=== PATIENT | female | born 1940 | race Caucasian/White ===

== ENCOUNTER 2018-07-26 07:54 | Inpatient (IN) | payer MEDICARE, MEDICAID | END 2018-07-29 13:50 | LOC: ER 07:54 → ED HOLD 13:08 → ORTHO 4S 16:30 | DX: M48.54XA Collapsed vertebra, not elsewhere classified, thoracic region, initial encounter for fracture (principal); E43 Unspecified severe protein-calorie malnutrition; E87.1 Hypo-osmolality and hyponatremia; Z68.1 Body mass index [BMI] 19.9 or less, adult; F10.10 Alcohol abuse, uncomplicated ==

== ENCOUNTER 2019-07-19 23:29 | Inpatient (IN) | payer MEDICARE, MEDICAID ==
[~2019-07-19] VITALS: Ht 160 cm; Wt 35.0 kg
[~2019-07-19 23:29] MED LIST: BUDE0.256 IH; FLUT1AER INH
--- NOTE | 2019-07-19 23:55 | NUR ---
ct of head completed
[2019-07-20] VITALS (7 sets, daily range): BP systolic 99–141; BP diastolic 41–62
[2019-07-20 00:16] LABS: BASOPHILS % (AUTO) 0.4 % (0-1); EOSINOPHILS % (AUTO) 0 % (0-6); HEMATOCRIT 41.2 % (35.0-45.0); HEMOGLOBIN 13.6 g/dl (12.0-16.0); LYMPHOCYTES # (AUTO) 0.5 X10'3 (1.1-4.8); LYMPHOCYTES % (AUTO) 7.5 % (21-51); MEAN CORPUSCULAR HEMOGLOBIN 31.8 PG (27.0-31.0); MEAN CORPUSCULAR VOLUME 96.4 FL (78-98); MEAN PLATELET VOLUME 7.5 FL (7.4-10.4); MONOCYTES # (AUTO) 0.3 X10'3 (0-0.9); MONOCYTES % (AUTO) 3.8 % (2-12); NEUTROPHILS # (AUTO) 6.1 X10'3 (1.8-7.7); NEUTROPHILS % (AUTO) 88.3 % (42-75); PLATELET COUNT 253 X10'3 (140-440); RED BLOOD COUNT 4.28 X10'6 (4.20-5.60); RED CELL DISTRIBUTION WIDTH 14.2 % (11.5-14.5); WHITE BLOOD COUNT 6.9 X10'3 (4.5-11.0)
[2019-07-20 00:26] LABS: PARTIAL THROMBOPLASTIN TIME 26 SECONDS (22-32)
[2019-07-20 00:29] LABS: ALANINE AMINOTRANSFERASE 18 U/L (12-78); ALBUMIN 3.6 G/DL (3.4-5.0); ALBUMIN/GLOBULIN RATIO 1.1 (1.1-1.5); ALKALINE PHOSPHATASE 76 IU/L (46-116); ANION GAP 1 (8-16); BILIRUBIN,TOTAL 0.3 MG/DL (0.1-1.0); BLOOD UREA NITROGEN 32 MG/DL (7-18); BUN/CREATININE RATIO 52.5 (6.6-38.0); CALCIUM 8.9 MG/DL (8.5-10.1); CHLORIDE 98 MMOL/L (99-107); CREATININE 0.61 MG/DL (0.40-0.90); GLUCOSE 121 MG/DL (70-104); SODIUM 139 MMOL/L (135-145); TOTAL CARBON DIOXIDE 39.7 MMOL/L (24-32); TOTAL PROTEIN 6.9 G/DL (6.4-8.2); eGFR > 90 ML/MIN
[2019-07-20 00:31] LABS: TROPONIN I 0.04 NG/ML (0.0-0.05)
[2019-07-20 00:33] LABS: ASPARTATE AMINO TRANSFERASE 22 U/L (10-37); POTASSIUM 4.4 MMOL/L (3.5-5.1)
[2019-07-20] MEDS ORDERED: normal saline 1000ML IV soln IVB ONE (00:40)
[2019-07-20] MEDS: normal saline 1000ml 1,000 ML IV SCH ×2 (01:00→04:31)
[2019-07-20] MEDS ORDERED: iohexol 350MG/ML 100ml bottle IV ONE (01:17)
--- NOTE | 2019-07-20 01:28 | NUR ---
pt to ct of head
--- NOTE | 2019-07-20 01:44 | NUR ---
pt back from ct
--- NOTE | 2019-07-20 02:20 | NUR ---
rossy alcazar notified consult computer set up at bedside
--- NOTE | 2019-07-20 02:23 | NUR ---
plan of care updated with family memebres at bedside
--- NOTE | 2019-07-20 03:08 | NUR ---
NEURO CONSULT COMPLETE
--- NOTE | 2019-07-20 03:25 | NUR ---
[facility] LEFT UNIT, WILL RETURN IN A FEW HOURS
[2019-07-20] MEDS ORDERED: ondansetron/PF 4mg/2ml inj IV PRN (03:30)
[2019-07-20] MEDS ORDERED: potassium CL 10mEq/100ml bag 100 ML IV PRN ×2 (03:30)
--- NOTE | 2019-07-20 04:01 | NUR ---
Patient in room . I have received report from DEMARCUS Jacinto and had the opportunity to ask questions and assume patient care.
--- NOTE | 2019-07-20 04:15 | NUR ---
Patient arrived to floor with RN, limited armband placed on pt. Pt is non-responsive, VSS. Transfered to bed via slideboard, preformed skin check and placed tele on pt. Will continue to monitor.
--- NOTE | 2019-07-20 06:20 | NUR ---
Problems reprioritized. Patient report given, questions answered & plan of care reviewed with DEMARCUS Mckeon.
--- NOTE | 2019-07-20 06:30 | NUR ---
Received report from Edna TRACY
[2019-07-20] MEDS: K and/or MAG REPLACEMENT MC SCH ×2 (08:00→20:00)
[2019-07-20] MEDS: heparin, porcine 5000 units/ml vial SQ SCH ×2 (08:31→19:29)
[2019-07-20] MEDS: albuterol 2.5 MG/3 ML nebule NEB SCH ×3 (09:00→20:41)
[2019-07-20] MEDS: budesonide 0.5mg/2ml UD nebule IH SCH ×2 (09:00→20:41)
[2019-07-20 09:27] LABS: BASOPHILS % (AUTO) 0.3 % (0-1); EOSINOPHILS % (AUTO) 0.1 % (0-6); HEMATOCRIT 40.9 % (35.0-45.0); HEMOGLOBIN 13.3 g/dl (12.0-16.0); LYMPHOCYTES # (AUTO) 0.8 X10'3 (1.1-4.8); LYMPHOCYTES % (AUTO) 11.8 % (21-51); MEAN CORPUSCULAR HEMOGLOBIN 31.3 PG (27.0-31.0); MEAN CORPUSCULAR HGB CONC 32.5 g/dL (33.0-36.5); MEAN CORPUSCULAR VOLUME 96.3 FL (78-98); MEAN PLATELET VOLUME 7.6 FL (7.4-10.4); MONOCYTES # (AUTO) 0.6 X10'3 (0-0.9); MONOCYTES % (AUTO) 8.8 % (2-12); NEUTROPHILS # (AUTO) 5.2 X10'3 (1.8-7.7); PLATELET COUNT 222 X10'3 (140-440); RED BLOOD COUNT 4.25 X10'6 (4.20-5.60); RED CELL DISTRIBUTION WIDTH 14.3 % (11.5-14.5); WHITE BLOOD COUNT 6.5 X10'3 (4.5-11.0)
[2019-07-20 09:51] LABS: ALANINE AMINOTRANSFERASE 28 U/L (12-78); ALBUMIN 3.5 G/DL (3.4-5.0); ALBUMIN/GLOBULIN RATIO 1.2 (1.1-1.5); ALKALINE PHOSPHATASE 77 IU/L (46-116); ANION GAP 0 (8-16); ASPARTATE AMINO TRANSFERASE 23 U/L (10-37); BILIRUBIN,TOTAL 0.3 MG/DL (0.1-1.0); BLOOD UREA NITROGEN 28 MG/DL (7-18); BUN/CREATININE RATIO 59.6 (6.6-38.0); CALCIUM 9.1 MG/DL (8.5-10.1); CHLORIDE 101 MMOL/L (99-107); CREATININE 0.47 MG/DL (0.40-0.90); GLUCOSE 98 MG/DL (70-104); POTASSIUM 4.7 MMOL/L (3.5-5.1); SODIUM 141 MMOL/L (135-145); TOTAL CARBON DIOXIDE 39.9 MMOL/L (24-32); TOTAL PROTEIN 6.5 G/DL (6.4-8.2); eGFR > 90 ML/MIN
[2019-07-20] MEDS ORDERED: aspirin 300mg supp.rect RC ONE (11:55)
--- NOTE | 2019-07-20 12:11 | NUR ---
Patient in room ORTHO 4011. I have received report from [facility] N[facility]EL [facility] PIPE and had the opportunity to ask questions and assume patient care. -GREGG ZAFAR
--- NOTE | 2019-07-20 16:23 | NUR ---
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 Hx early stages of dementia as well per EMR. Pt not safe for PO; NPO per YARD ASSOCIATE recs today. Pt -2kg since last admit July 2018 though did have severe cachexia in addition to wt loss at that time as well. Pt likely has remained malnourished w/ current BMI 13.7, severe weakness, severe muscle/fat wasting, and prior wt loss hx. Meets severe malnutrition criteria this admit; MD notified. Pt was agreeable to vanilla ensure enlive TID last July; will monitor for ONS preferences once cleared for PO per YARD ASSOCIATE recs. José Manuel 10; skin intact and no edema present. IF pt fails YARD ASSOCIATE BSS tomorrow would likely benefit from alternative nutrition to meet needs givenrepletion needs and ALOC AOx2. Not appropriate for malnutrition ed at this time givevn ALOC. EN recs below IF alternative nutrition necessary. Will continue to monitor. Rec: 1. advance diet per YARD ASSOCIATE to regular 2. IF alternative nutrition per YARD ASSOCIATE; Jevity 1.2 at 50ml/hr 3. once PO; vanilla ensure enlive TIDWM 4. once PO; MVI/mineral given malnutrition needs 5. once PO; consider appetite stimulant per MD approval 6. bowel care as needed Addendum: 07/20/19 at [address] Amended: Links added.
[2019-07-20] MEDS: mineral oil/petrolatum, white cream 113gm jar TP SCH (16:46)
--- NOTE | 2019-07-20 16:46 | NUR ---
MED DID NOT SCAN INTO [facility], CHECKED MED PRIOR TO ADMIN
--- NOTE | 2019-07-20 18:13 | NUR ---
Problems reprioritized. Patient report given TO PRIMARY NURSE ANGEL, questions answered & plan of care reviewed with CLINICAL INSTRUCTOR LETI. -GREGG ZAFAR
--- NOTE | 2019-07-20 18:38 | NUR ---
GAVE REPORT TO DEMARCUS JOY
--- NOTE | 2019-07-20 19:37 | NUR ---
pt has 6-7 word sentences. pt states normal for her. diminished lungs noted. watching tv
--- NOTE | 2019-07-20 20:30 | NUR ---
noted sats at 79%. increased O2 to 2.5 liters. called RT to give treatment. pt had not received tx since admission.
--- NOTE | 2019-07-21 00:38 | NUR ---
oxygen off, desat to 83%. up to 93% on 2.5L oxygen
[2019-07-21] MEDS ORDERED: albuterol 2.5 MG/3 ML nebule NEB PRN (00:45)
--- NOTE | 2019-07-21 01:30 | NUR ---
tele reported elevated hr in 130's for a few seconds. unsure of patient's activity at that time as it was reported to RN at 0512. noted to television equipment operator that pt has history of afib with RVR and to call RN if activity returns.
[2019-07-21] MEDS: albuterol 2.5 MG/3 ML nebule NEB SCH ×4 (03:18→21:18)
[2019-07-21 06:00] VITALS: BP 102/45
--- NOTE | 2019-07-21 06:02 | NUR ---
reported to days. noted pt resting w/o distress - anticipate CT this am
[2019-07-21 06:24] LABS: BASOPHILS % (AUTO) 0.3 % (0-1); EOSINOPHILS % (AUTO) 0.3 % (0-6); HEMATOCRIT 36.8 % (35.0-45.0); LYMPHOCYTES # (AUTO) 0.6 X10'3 (1.1-4.8); LYMPHOCYTES % (AUTO) 8.9 % (21-51); MEAN CORPUSCULAR HEMOGLOBIN 31.6 PG (27.0-31.0); MEAN CORPUSCULAR HGB CONC 32.7 g/dL (33.0-36.5); MEAN CORPUSCULAR VOLUME 96.6 FL (78-98); MONOCYTES # (AUTO) 0.5 X10'3 (0-0.9); MONOCYTES % (AUTO) 7.3 % (2-12); NEUTROPHILS # (AUTO) 5.9 X10'3 (1.8-7.7); NEUTROPHILS % (AUTO) 83.2 % (42-75); PLATELET COUNT 216 X10'3 (140-440); RED BLOOD COUNT 3.81 X10'6 (4.20-5.60); WHITE BLOOD COUNT 7.1 X10'3 (4.5-11.0)
--- NOTE | 2019-07-21 06:25 | NUR ---
Patient in room ORTHO 4011. I have received report from Jono and had the opportunity to ask questions and assume patient care.
[2019-07-21 06:41] LABS: ALANINE AMINOTRANSFERASE 23 U/L (12-78); ALBUMIN/GLOBULIN RATIO 1.1 (1.1-1.5); ALKALINE PHOSPHATASE 71 IU/L (46-116); ANION GAP -3 (8-16); ASPARTATE AMINO TRANSFERASE 15 U/L (10-37); BILIRUBIN,TOTAL 0.2 MG/DL (0.1-1.0); BLOOD UREA NITROGEN 30 MG/DL (7-18); BUN/CREATININE RATIO 76.9 (6.6-38.0); CALCIUM 8.7 MG/DL (8.5-10.1); CHLORIDE 103 MMOL/L (99-107); CHOL/HDL RATIO 2.6 (0.00-4.99); CHOLESTEROL 160 MG/DL (0-200); CREATININE 0.39 MG/DL (0.40-0.90); GLUCOSE 87 MG/DL (70-104); HDL CHOLESTEROL 62 MG/DL (35-60); LDL CHOLESTEROL 87 MG/DL (50-100); POTASSIUM 4.6 MMOL/L (3.5-5.1); SODIUM 142 MMOL/L (135-145); TOTAL PROTEIN 5.7 G/DL (6.4-8.2); TRIGLYCERIDES 77 MG/DL (20-135); eGFR > 90 ML/MIN
[2019-07-21 06:48] LABS: TOTAL CARBON DIOXIDE 42.1 MMOL/L (24-32)
--- NOTE | 2019-07-21 06:55 | NUR ---
Critical value received - CO2 of 42.1
--- NOTE | 2019-07-21 07:16 | NUR ---
PAGER ID: [phone] MESSAGE: Andrade, critical value for Ms. Metcalf in 4011A, CO2 of 42.1, thank you Edwige #[phone]
[2019-07-21] MEDS: budesonide 0.5mg/2ml UD nebule IH SCH ×2 (07:47→21:18)
[2019-07-21] MEDS: K and/or MAG REPLACEMENT MC SCH ×2 (08:00→19:45)
[2019-07-21] MEDS: mineral oil/petrolatum, white cream 113gm jar TP SCH (09:59)
[2019-07-21 10:00] VITALS: BP 96/41
[2019-07-21] MEDS ORDERED: iohexol 300mg/ml 100ml inj. ONE (10:37)
[2019-07-21] MEDS: aspirin 81mg tablet.DR PO SCH (11:06)
[2019-07-21] MEDS: heparin, porcine 5000 units/ml vial SQ SCH ×2 (11:07→19:44)
[2019-07-21 13:05] LABS: ABG BASE EXCESS 11.6 mmol/L (-2.0-3.0); ABG HCO3 41.7 mmol/L (22.0-26.0); ABG OXYGEN SATURATION 94.6 % (95-98); ABG PCO2 (T) 89.8 mmHg (35.0-45.0); ABG PH (T) 7.285 (7.350-7.450); ABG PO2 (T) 75.6 mmHg (83-108); ALLEN'S TEST POSITIVE; FCOHb 0.8 % (0.5-1.5); FLOW 2 L/min; FMetHb 0.3 % (0.3-1.12); FO2Hb 93.6 % (94-100); TOTAL HEMOGLOBIN 12.4 G/dl (12.0-16.0)
[2019-07-21 14:00] VITALS: BP 151/58
--- NOTE | 2019-07-21 14:34 | NUR ---
Problems reprioritized. Patient report given, questions answered & plan of care reviewed with Dominique on PCU.
[2019-07-21 15:00] VITALS: BP 105/54
--- NOTE | 2019-07-21 15:00 | NUR ---
Patient in room PCU 3024. I have received report from DEMARCUS Gibbons and had the opportunity to ask questions and assume patient care.
--- NOTE | 2019-07-21 15:15 | NUR ---
Transferred pt to [facility] 3024B. Set pt up in new room, gave update to accepting RN.
[2019-07-21 17:21] LABS: ABG BASE EXCESS 11.8 mmol/L (-2.0-3.0); ABG HCO3 40.2 mmol/L (22.0-26.0); ABG PCO2 (T) 73.6 mmHg (35.0-45.0); ABG PH (T) 7.355 (7.350-7.450); ABG PO2 (T) 64.2 mmHg (83-108); ALLEN'S TEST POSITIVE; FCOHb 0.8 % (0.5-1.5); FMetHb 0.3 % (0.3-1.12); RESPIRATORY RATE 18 b/min; TOTAL HEMOGLOBIN 12.1 G/dl (12.0-16.0)
--- NOTE | 2019-07-21 17:38 | NUR ---
PAGER ID: [phone] MESSAGE: [id number]. pt. Izzy Metcalf. would you like to continue neuro checks on her. also pt. ABG results are n if you wanted to look at them. thank you. DEMARCUS Fox [id number]
[2019-07-21 18:00] VITALS: BP 109/52
--- NOTE | 2019-07-21 18:47 | NUR ---
Problems reprioritized. Patient report given, questions answered & plan of care reviewed with DEMARCUS Lees.
[2019-07-21] MEDS: normal saline 1000ml 1,000 ML IV SCH (20:15)
[2019-07-21 22:00] VITALS: BP 113/68
[2019-07-22 02:00] VITALS: BP 102/53
[2019-07-22] MEDS: albuterol 2.5 MG/3 ML nebule NEB SCH ×4 (02:50→21:33)
[2019-07-22 06:15] LABS: BASOPHILS % (AUTO) 0.5 % (0-1); EOSINOPHILS # (AUTO) 0.1 X10'3 (0-0.9); HEMATOCRIT 33.5 % (35.0-45.0); HEMOGLOBIN 11.3 g/dl (12.0-16.0); LYMPHOCYTES # (AUTO) 0.6 X10'3 (1.1-4.8); LYMPHOCYTES % (AUTO) 7.6 % (21-51); MEAN CORPUSCULAR HEMOGLOBIN 32.3 PG (27.0-31.0); MEAN CORPUSCULAR HGB CONC 33.6 g/dL (33.0-36.5); MEAN CORPUSCULAR VOLUME 96.1 FL (78-98); MEAN PLATELET VOLUME 7.7 FL (7.4-10.4); MONOCYTES # (AUTO) 0.5 X10'3 (0-0.9); MONOCYTES % (AUTO) 6.6 % (2-12); NEUTROPHILS # (AUTO) 6.1 X10'3 (1.8-7.7); NEUTROPHILS % (AUTO) 84.3 % (42-75); PLATELET COUNT 204 X10'3 (140-440); RED BLOOD COUNT 3.49 X10'6 (4.20-5.60); WHITE BLOOD COUNT 7.3 X10'3 (4.5-11.0)
--- NOTE | 2019-07-22 06:16 | NUR ---
Problems reprioritized. Patient report given, questions answered & plan of care reviewed with DEMARCUS Lawton.
[2019-07-22 06:30] LABS: ALANINE AMINOTRANSFERASE 18 U/L (12-78); ALBUMIN 2.7 G/DL (3.4-5.0); ALKALINE PHOSPHATASE 68 IU/L (46-116); ANION GAP 0 (8-16); ASPARTATE AMINO TRANSFERASE 13 U/L (10-37); BILIRUBIN,TOTAL 0.3 MG/DL (0.1-1.0); BLOOD UREA NITROGEN 20 MG/DL (7-18); BUN/CREATININE RATIO 62.5 (6.6-38.0); CALCIUM 8.6 MG/DL (8.5-10.1); CHLORIDE 99 MMOL/L (99-107); CREATININE 0.32 MG/DL (0.40-0.90); GLUCOSE 116 MG/DL (70-104); POTASSIUM 4.1 MMOL/L (3.5-5.1); SODIUM 140 MMOL/L (135-145); TOTAL PROTEIN 5.4 G/DL (6.4-8.2); eGFR > 90 ML/MIN
[2019-07-22 06:32] LABS: TOTAL CARBON DIOXIDE 41.1 MMOL/L (24-32)
--- NOTE | 2019-07-22 06:55 | NUR ---
Patient in room PCU 3024. I have received report from DEMARCUS Ochoa and had the opportunity to ask questions and assume patient care. Patient awake in bed and on bipap, and in no acute distress.
[2019-07-22 07:00] VITALS: BP 106/65
[2019-07-22] MEDS: aspirin 81mg tablet.DR PO SCH (07:16)
[2019-07-22] MEDS: heparin, porcine 5000 units/ml vial SQ SCH ×2 (07:17→19:53)
[2019-07-22] MEDS: mineral oil/petrolatum, white cream 113gm jar TP SCH (07:18)
[2019-07-22] MEDS: K and/or MAG REPLACEMENT MC SCH ×2 (07:32→20:00)
[2019-07-22] MEDS: budesonide 0.5mg/2ml UD nebule IH SCH ×2 (07:59→21:33)
[2019-07-22 11:00] VITALS: BP_SYST 120; BP_SYST 139; BP_DIAS 57; BP_DIAS 86
--- NOTE | 2019-07-22 11:56 | NUR ---
Reassessment: patient was seen by speech therapy for BSS 07/20, ST reports patient edentulous with difficulty chewing and recommends pureed food with thin liquids, follow up assessments reports pt tolerating pureed foods and thin liquids. Was eating poorly initially when diet was advanced likely r/t confusion and is slowly improving, she ate 65% of breakfast this morning with average PO intake of 25-49% for two days. Per DCP note patient was accepted at [facility]. Currently A/O x4. Per MD note patient with facial droop with aphasia with acute stroke seen on MRI, failure to thrive with weakness and cachexia. Recommend adding Ensure Enlive with meals in view of suboptimal PO intake and cachexia, notified MD. Will follow. Rec: 1. Continue pureed diet with thin liquids per ST recommendations 2. Recommend vanilla ensure enlive TIDWM 3. bowel care as needed 4. weight per rx Addendum: 07/22/19 at [address] Amended: Links added.
[2019-07-22] MEDS ORDERED: lactose-reduced food (Ensure Enlive) - 237ml bottle PO SCH (13:00)
[2019-07-22 15:00] VITALS: BP 117/63
[2019-07-22] MEDS: normal saline 1000ml 1,000 ML IV SCH (15:49)
--- NOTE | 2019-07-22 15:49 | NUR ---
Administered normal saline, bag wouldn't scan.
--- NOTE | 2019-07-22 18:17 | NUR ---
Problems reprioritized. Patient report given, questions answered & plan of care reviewed with DEMARCUS De La Torre. Patient stable at transfer of care.
--- NOTE | 2019-07-22 18:52 | NUR ---
received report from DEMARCUS Lawton
[2019-07-22 19:04] VITALS: BP 127/68
[2019-07-22] MEDS: methylPREDNISolone sod succ/PF 40mg inj. IV SCH (19:52)
[2019-07-22] MEDS: azithromycin 250mg tablet PO SCH (20:05)
[2019-07-22 22:00] VITALS: BP 130/63
[2019-07-23] VITALS (7 sets, daily range): BP systolic 95–129; BP diastolic 49–68
[2019-07-23] MEDS: albuterol 2.5 MG/3 ML nebule NEB SCH ×2 (02:40→08:15)
--- NOTE | 2019-07-23 06:19 | NUR ---
gave report to DEMARCUS Auguste
[2019-07-23 06:38] LABS: BASOPHILS % (AUTO) 0.1 % (0-1); EOSINOPHILS % (AUTO) 0 % (0-6); HEMATOCRIT 34.9 % (35.0-45.0); HEMOGLOBIN 11.8 g/dl (12.0-16.0); LYMPHOCYTES # (AUTO) 0.2 X10'3 (1.1-4.8); LYMPHOCYTES % (AUTO) 5.7 % (21-51); MEAN CORPUSCULAR HEMOGLOBIN 32.1 PG (27.0-31.0); MEAN CORPUSCULAR HGB CONC 33.7 g/dL (33.0-36.5); MEAN CORPUSCULAR VOLUME 95.4 FL (78-98); MEAN PLATELET VOLUME 7.8 FL (7.4-10.4); MONOCYTES # (AUTO) 0.1 X10'3 (0-0.9); MONOCYTES % (AUTO) 2.3 % (2-12); NEUTROPHILS # (AUTO) 3.9 X10'3 (1.8-7.7); NEUTROPHILS % (AUTO) 91.9 % (42-75); PLATELET COUNT 220 X10'3 (140-440); RED BLOOD COUNT 3.66 X10'6 (4.20-5.60); WHITE BLOOD COUNT 4.3 X10'3 (4.5-11.0)
--- NOTE | 2019-07-23 06:47 | NUR ---
Patient in room PCU 3024. I have received report from Shira TRACY and had the opportunity to ask questions and assume patient care.
[2019-07-23 07:01] LABS: ALANINE AMINOTRANSFERASE 17 U/L (12-78); ALBUMIN 2.7 G/DL (3.4-5.0); ALBUMIN/GLOBULIN RATIO 0.9 (1.1-1.5); ALKALINE PHOSPHATASE 71 IU/L (46-116); ANION GAP 0 (8-16); ASPARTATE AMINO TRANSFERASE 13 U/L (10-37); BILIRUBIN,TOTAL 0.3 MG/DL (0.1-1.0); BLOOD UREA NITROGEN 13 MG/DL (7-18); BUN/CREATININE RATIO 28.3 (6.6-38.0); CALCIUM 8.6 MG/DL (8.5-10.1); CHLORIDE 96 MMOL/L (99-107); CREATININE 0.46 MG/DL (0.40-0.90); GLUCOSE 159 MG/DL (70-104); POTASSIUM 4.5 MMOL/L (3.5-5.1); SODIUM 137 MMOL/L (135-145); TOTAL PROTEIN 5.6 G/DL (6.4-8.2); eGFR > 90 ML/MIN
[2019-07-23 07:04] LABS: TOTAL CARBON DIOXIDE 40.9 MMOL/L (24-32)
[2019-07-23] MEDS: K and/or MAG REPLACEMENT MC SCH (08:00)
[2019-07-23] MEDS: budesonide 0.5mg/2ml UD nebule IH SCH (08:15)
[2019-07-23] MEDS: aspirin 81mg tablet.DR PO SCH (08:53)
[2019-07-23] MEDS: azithromycin 250mg tablet PO SCH (08:53)
[2019-07-23] MEDS: heparin, porcine 5000 units/ml vial SQ SCH (08:54)
[2019-07-23] MEDS: methylPREDNISolone sod succ/PF 40mg inj. IV SCH (08:54)
[2019-07-23] MEDS: mineral oil/petrolatum, white cream 113gm jar TP SCH (09:00)
[2019-07-23 13:26] LABS: ABG BASE EXCESS 13.3 mmol/L (-2.0-3.0); ABG HCO3 42.4 mmol/L (22.0-26.0); ABG OXYGEN SATURATION 91.2 % (95-98); ABG PCO2 (T) 75.1 mmHg (35.0-45.0); ABG PH (T) 7.364 (7.350-7.450); ABG PO2 (T) 59.8 mmHg (83-108); ALLEN'S TEST POSITIVE; FCOHb 0.7 % (0.5-1.5); FLOW 2 L/min; FMetHb 0.1 % (0.3-1.12); FO2Hb 90.5 % (94-100); TOTAL HEMOGLOBIN 13.1 G/dl (12.0-16.0)
--- NOTE | 2019-07-23 15:26 | NUR ---
Patient has been cleared to discharge. Report called to Rebeca at [facility]. All questions answered. PIV removed/tele removed. ABG's reviewed with MD prior to discharge.
--- NOTE | 2019-07-23 16:27 | NUR ---
patient was cleaned up and she left in stable condition accompanied by Daiana Cargo.
== END 2019-07-23 16:07 | DRG 69 ==
LOC: ER 23:29 → ED HOLD 07-20 03:30 → UNDOADMIN 07-20 04:13 → ORTHO 4S 07-20 04:15 → ED HOLD 07-20 04:15 → PCU 3S 07-21 15:00
PROVIDERS: ADMIT Internal Medicine; ATTEND Internal Medicine
PROC: B3281ZZ Computerized Tomography (CT Scan) of Bilateral Internal Carotid Arteries using Low Osmolar Contrast (ICD-10-PCS; principal; 2019-07-20)
PROC: B32G1ZZ Computerized Tomography (CT Scan) of Bilateral Vertebral Arteries using Low Osmolar Contrast (ICD-10-PCS; 2019-07-20)
PROC: B32R1ZZ Computerized Tomography (CT Scan) of Intracranial Arteries using Low Osmolar Contrast (ICD-10-PCS; 2019-07-20)
PROC: 4A00X4Z Measurement of Central Nervous Electrical Activity, External Approach (ICD-10-PCS; 2019-07-21)
PROC: 5A09357 Assistance with Respiratory Ventilation, Less than 24 Consecutive Hours, Continuous Positive Airway Pressure (ICD-10-PCS; 2019-07-21)
PROC: 5A09357 Assistance with Respiratory Ventilation, Less than 24 Consecutive Hours, Continuous Positive Airway Pressure (ICD-10-PCS; 2019-07-22)
DX: G45.9 Transient cerebral ischemic attack, unspecified (principal); J96.22 Acute and chronic respiratory failure with hypercapnia; E43 Unspecified severe protein-calorie malnutrition; G92 Toxic encephalopathy; J44.1 Chronic obstructive pulmonary disease with (acute) exacerbation; J90 Pleural effusion, not elsewhere classified; Z68.1 Body mass index [BMI] 19.9 or less, adult; F17.200 Nicotine dependence, unspecified, uncomplicated; I48.91 Unspecified atrial fibrillation; R91.8 Other nonspecific abnormal finding of lung field; R29.810 Facial weakness; R62.7 Adult failure to thrive; Z82.49 Family history of ischemic heart disease and other diseases of the circulatory system; Z83.3 Family history of diabetes mellitus; Z79.51 Long term (current) use of inhaled steroids
CPT/HCPCS: 36415; 36600; 70450; 70496; 70498; 70551; 71045; 71260; 80053; 80061; 82803; 84484; 85018; 85025; 85610; 85651; 85730; 87081; 92508; 92616; 93005; 93306; 94640; 94660; 94760; 95816; 96360; 97161; 97530; 97535; 99285; G0378; J1644; J2920; J7030; J7626; Q9967

== ENCOUNTER 2024-01-13 09:25 | Emergency (ER) | payer MEDICARE, MEDICAID ==
[~2024-01-13] VITALS: Ht 162.6 cm; Wt 59.1 kg
[2024-01-13 10:58] LABS: BASOPHILS % (AUTO) 0.6 % (0-1); EOSINOPHILS # (AUTO) 0.1 X10'3 (0-0.9); EOSINOPHILS % (AUTO) 1.2 % (0-6); HEMATOCRIT 34.4 % (35.0-45.0); HEMOGLOBIN 11.7 g/dl (12.0-16.0); LYMPHOCYTES # (AUTO) 1.1 X10'3 (1.1-4.8); LYMPHOCYTES % (AUTO) 14.6 % (21-51); MEAN CORPUSCULAR HEMOGLOBIN 30.1 PG (27.0-31.0); MEAN CORPUSCULAR HGB CONC 33.9 g/dL (33.0-36.5); MEAN PLATELET VOLUME 7.6 FL (7.4-10.4); MONOCYTES # (AUTO) 0.7 X10'3 (0-0.9); MONOCYTES % (AUTO) 8.7 % (2-12); NEUTROPHILS # (AUTO) 5.6 X10'3 (1.8-7.7); NEUTROPHILS % (AUTO) 74.9 % (42-75); PLATELET COUNT 340 X10'3 (140-440); RED BLOOD COUNT 3.87 X10'6 (4.20-5.60); WHITE BLOOD COUNT 7.5 X10'3 (4.5-11.0)
[2024-01-13 11:02] LABS: ALBUMIN 3.9 G/DL (3.4-5.0); ANION GAP 10 (8-16); BLOOD UREA NITROGEN 14 MG/DL (7-18); BUN/CREATININE RATIO 19.2 (10.0-20.0); CALCIUM 9.8 MG/DL (8.5-10.1); CHLORIDE 93 MMOL/L (99-107); CREATININE 0.73 MG/DL (0.40-0.90); GLUCOSE 119 MG/DL (70-104); POTASSIUM 4.4 MMOL/L (3.5-5.1); SODIUM 130 MMOL/L (135-145); TOTAL CARBON DIOXIDE 26.9 MMOL/L (24-32); eCRCL 50 ML/MIN; eGFR 76 ML/MIN
--- NOTE | 2024-01-13 11:57 | NUR ---
PT ASSISTED TO BED SIDE COMMODE FOR UA SAMPLE
[2024-01-13 12:31] VITALS: BP 120/57; PULSE 70; RESP 19; TEMP 97.4; O2SAT 92
== END 2024-01-13 12:36 | disposition home or self-care (01) ==
LOC: ER 09:25
DX: R79.9 Abnormal finding of blood chemistry, unspecified (principal); E87.1 Hypo-osmolality and hyponatremia; J44.9 Chronic obstructive pulmonary disease, unspecified; I25.2 Old myocardial infarction; F10.90 Alcohol use, unspecified, uncomplicated; F03.90 Unspecified dementia, unspecified severity, without behavioral disturbance, psychotic disturbance, mood disturbance, and anxiety; Z79.51 Long term (current) use of inhaled steroids; Z79.52 Long term (current) use of systemic steroids; Z60.2 Problems related to living alone
CPT/HCPCS: 36415; 80048; 85025; 93005; 99284

== ENCOUNTER 2024-08-08 09:21 | Outpatient (CLI) | payer MEDICARE, MEDICAID | END 2024-08-08 23:59 | disposition home or self-care (01) | LOC: RAD 09:21 | PROVIDERS: ATTEND Neuromusculoskeletal Medicine & OMM | DX: R40.4 Transient alteration of awareness (principal) | CPT/HCPCS: 95816 ==